=== PATIENT | male | born 1955 | race Caucasian/White ===

== ENCOUNTER 2017-03-04 06:13 | Inpatient (IN) | payer OTHER ==
[2017-02-02 09:19] VITALS: BMI 35.0
--- NOTE | 2017-02-02 09:47 | PAT Medication Instructions ---
Service Date Feb 02, 2017. Current Home Medication List Amlodipine/Benazepril (Lotrel 10MG/20MG), 1 CAP PO QAM Ascorbic Acid (Vitamin C), 1 TAB PO QAM Atenolol (Tenormin), 50 MG PO QAM Glipizide (Glucotrol), 5 MG PO QAM Hydrochlorothiazide (Hctz), 50 MG PO QAM Metformin Hcl (Glucophage), 500 MG PO BID Multivitamin (Multivitamin), 1 TAB PO QAM Naproxen (Aleve), 220 MG PO BID PRN for Pain Ocuvite Preservision (Ocuvite Preservision), 1 TAB PO BID Simvastatin (Simvastatin), 20 MG PO HS Medication Instructions For Your Scheduled Surgery - Hold the following medications 10 days prior to surgery per surgeon's instructions: Naproxen (Aleve), 220 MG PO BID PRN for Pain - Hold the following medications 48 hours prior to surgery: Metformin Hcl (Glucophage), 500 MG PO BID - Hold the following medications the morning of surgery: Amlodipine/Benazepril (Lotrel 10MG/20MG), 1 CAP PO QAM Ascorbic Acid (Vitamin C), 1 TAB PO QAM Glipizide (Glucotrol), 5 MG PO QAM Hydrochlorothiazide (Hctz), 50 MG PO QAM Multivitamin (Multivitamin), 1 TAB PO QAM Ocuvite Preservision (Ocuvite Preservision), 1 TAB PO BID - Take the following medications the morning of surgery with a sip of water OTHERWISE NOTHING TO EAT OR DRINK AFTER MIDNIGHT: Atenolol (Tenormin), 50 MG PO QAM - Take the following medications as scheduled the night before surgery: Simvastatin (Simvastatin), 20 MG PO HS Ocuvite Preservision (Ocuvite Preservision), 1 TAB PO BID If you have any questions please call us at [phone] or [phone] or [phone]
--- NOTE | 2017-02-02 10:55 | DIAGNOSTIC IMAGING REPORT ---
TWO VIEW CHEST CLINICAL HISTORY: Preoperative assessment. FINDINGS: PA and lateral chest radiographs are obtained. No prior studies are available for comparison at the time of dictation. The heart is top normal for projection. The mediastinal contour is within normal limits. Surgical clips project over the mediastinum. The lungs and pleural spaces are clear. There is no pneumothorax. The bony thorax appears intact. IMPRESSION: No active disease in the chest. Electronically signed by: Jaskaran Hill M.D. 02/02/2017 10:53 AM Dictated Date/Time: 02/02/2017 10:52 AM
[2017-02-02 11:03] LABS: BASO % 0.7 %; BASO ABS # 0.05 K/uL (0-0.2); COMPLETE YES; IG% 0.3 %; LYMPH % 28.3 %; LYMPH ABS # 1.92 K/uL (1.2-3.4); MEAN CELL VOLUME 82.6 fL (80-100); MEAN CORPUSCULAR HEMOGLOBIN 28.5 pg (25-34); MEAN CORPUSCULAR HGB CONC 34.5 g/dl (32-36); MEAN PLATELET VOLUME 10.1 fL (7.4-10.4); MONO % 6.8 %; NEUT % 59.9 %; PLATELET COUNT 264 K/uL (130-400); RED BLOOD COUNT 4.84 M/uL (4.7-6.1); WHITE BLOOD COUNT 6.78 K/uL (4.8-10.8)
[2017-02-02 11:14] LABS: BUN/CREATININE RATIO 13.6 (10-20); CALCIUM 9.4 mg/dl (8.5-10.1); CREATININE 0.85 mg/dl (0.60-1.40); POTASSIUM 3.5 mmol/L (3.5-5.1)
[2017-02-02 11:21] LABS: C-REACTIVE PROTEIN 0.51 mg/dl (0-0.29)
[2017-02-02 11:22] LABS: INR 0.9 (0.9-1.1); PROTHROMBIN TIME (PATIENT) 9.9 SECONDS (9.0-12.0)
--- NOTE | 2017-02-25 19:03 | HISTORY & PHYSICAL EXAMINATION ---
DATE OF ADMISSION: 03/04/2017 CHIEF COMPLAINT: Bilateral knee pain, right side greater than left. HISTORY OF PRESENT ILLNESS: 61-year-old gentleman and patient of my partner, Dr. Walker, who presents for surgical treatment of his right knee. He has got a long history of bilateral knee pain and discomfort, right side greater than left. He has been through extensive conservative treatment including oral medicines and injections. The last shot really did not help much at all. The right knee is worse than the left. The pain is mostly in the medial side of his knee. It is increased with weightbearing. He would like to proceed with surgery. PAST MEDICAL HISTORY: 1. Hypertension. 2. Elevated cholesterol. 3. Diabetes x6 years. 4. Benign prostatic hypertrophy. PAST SURGICAL HISTORY: 1. Chest surgery for tumor. 2. Left knee arthroscopy done by Dr. Walker 2009. 3. Shoulder surgery in 2006. ALLERGIES: VISOLINE. CURRENT MEDICINES: 1. Lotrel 10/20 once a day. 2. Glipizide 5 mg. 3. Atenolol 50 mg a day. 4. Hydrochlorothiazide 50 mg. 5. Simvastatin 20 mg a day. 6. Metformin 500 mg twice a day. 7. Aleve 3 tablets a day. 8. Multivitamins. SOCIAL HISTORY: 61-year-old male. He is retired. Lives in [place]. He is . FAMILY HISTORY: Noncontributory. REVIEW OF SYSTEMS: Diabetes. Denies any chest pain, no shortness of breath. No history of DVT or PE. No bleeding problems. PHYSICAL EXAMINATION: GENERAL: Reveals a pleasant, middle-aged male. He looks to be in good health. HEENT: Benign. NECK: Supple. No lymphadenopathy. LUNGS: Clear to auscultation. HEART: Has a regular rate and rhythm. ABDOMEN: Soft, nontender, nondistended. EXTREMITIES: Grossly neurovascularly intact except as follows. Examination of both lower extremities reveals the patient ambulates with a waddling gait. He has a varus alignment to both knees. He is tender over the medial joint line of both knees. Range of motion symmetrically about 5 degrees short of full extension to 120 degrees of flexion. He has small knee effusions bilaterally. No pain with hip motion. X-RAYS: X-rays of both knees reveal advanced bilateral knee medial compartment DJD. He has complete loss of the medial joint space on both sides. The right side is a bit worse than the left. He has subchondral sclerosis and osteophytes primarily in the medial compartment. ASSESSMENT: 61-year-old male from [place] with bilateral knee pain and degenerative joint disease, right side more so than the left. He has failed conservative treatment and would like to have his right knee replaced. He was wanting both of them done at the same time, but I think with his diabetes I think it is best to do one at a time. PLAN: We are going to take him to the operating room and do a right total knee replacement. The risks and benefits of this procedure were explained to the patient including but not limited to DVT, PE, , infection, neurologic injury, vascular injury, bleeding problem, pain, limited range of motion, stiffness, failure to relieve his symptoms, incomplete relief of symptoms, need for further surgery in the future, fracture, leg length inequality, nerve palsy, etc. The patient understands and desires to proceed. Informed consent was obtained. We did talk to him about holding his metformin 2 days before surgery and Aleve 2 weeks preop. He will take his atenolol. Will use insulin sliding scale coverage in the hospital. He is planning to be discharged to home with home nursing and I will see him back 2 weeks postop.
[2017-03-04] VITALS (8 sets, daily range): BP systolic 129–169; BP diastolic 73–99; PULSE 56–59; TEMP 36.4–36.8; O2SAT 94–100; Ht 167.6 cm; Wt 96.5 kg
[~2017-03-04] VITALS: Ht 167.6 cm; Wt 96.5 kg
[~2017-03-04 06:13] MED LIST: ACETAMINOPHEN 500 MG TAB PO SCH; AMLO10CA PO; ASCA500 PO; ATEN50TA8 PO; BUPIVACAINE LIPOSOME 266 MG, BUPIVACAINE/EPINEPHRINE INJ 50 ML, SODIUM CHLORIDE 0.9% PF... INFIL SCH; CEFAZOLIN 2000 MG/60 ML D5W 60 ML IV SCH; FAMOTIDINE 20 MG TAB PO SCH; GABAPENTIN 300 MG CAP PO SCH; GLC/500 PO; GLIP5TAB11 PO; HYDR50TA3 PO; LACTATED RINGER'S 1000ML IV SCH; LACTATED RINGER'S 500 ML IV SCH; METOCLOPRAMIDE HCL 10 MG TAB PO SCH; MULT-190 PO; MULT-506 PO; NAPR1TAB9 PO; SCOPOLAMINE 1.5 MG TDSY TD SCH; TRANEXAMIC ACID INJ 1,000 MG in SODIUM CHLORIDE 0.9% 100ML 100 ML IV SCH; ZCR20 PO
--- NOTE | 2017-03-04 06:47 | History & Physical Bridge Note ---
H&P Re-Evaluation Bridge Note: I have examined the patient, reviewed the History & Physical and in the interval since the performance of the History & Physical I have noted the following changes of clinical significance: No changes noted
[2017-03-04] MEDS ORDERED: FENTANYL CITRATE INJ 50 MCG/1 ML 2 ML VIAL ONE (07:21)
[2017-03-04] MEDS ORDERED: MIDAZOLAM HCL 1 MG/ML 2ML VIAL ONE ×3 (07:22→09:31)
[2017-03-04] MEDS ORDERED: BUPIVACAINE 0.25% 30 ML VIAL ONE (07:23)
[2017-03-04] MEDS ORDERED: BUPIVACAINE 0.5 % 5 MG/1 ML PF 10ML VIAL ONE (07:23)
[2017-03-04] MEDS ORDERED: PHENYLEPHRINE 100MCG/ML 5ML SYR IV PRN (08:30)
[2017-03-04] MEDS ORDERED: EpHEDrine SULFATE INJ 50 MG/ML AMP IV PRN (08:30)
[2017-03-04] MEDS ORDERED: KETOROLAC TROMETHAMINE 30 MG/ML VIAL IV. PRN (08:30)
[2017-03-04] MEDS ORDERED: ATROPINE SULFATE 0.1 MG/ML 5ML SYR IV PRN (08:30)
[2017-03-04] MEDS ORDERED: ONDANSETRON INJ 2 MG/ML 2 ML VIAL IV PRN ×2 (08:30→12:45)
[2017-03-04] MEDS ORDERED: HYDROmorphone INJ 2 MG/ML SYR/VIAL IV PRN (08:30)
[2017-03-04] MEDS ORDERED: SODIUM CHLORIDE 0.9% PF 50 ML VIAL ONE (10:51)
[2017-03-04] MEDS ORDERED: BUPIVACAINE/EPINEPHRINE 0.25% 1:200,000 30 ML VIAL ONE (10:51)
[2017-03-04] MEDS ORDERED: BACITRACIN 50000 UNIT VIAL ONE (10:51)
[2017-03-04] MEDS ORDERED: BUPIVACAINE LIPOSOME 1/3% 266 MG/20 ML VIAL INFIL ONE (10:51)
--- NOTE | 2017-03-04 12:33 | [facility] Post Operative Brief Note ---
Immediate Operative Summary Operative Date March 04, 2017. Pre-Operative Diagnosis Right knee degenerative joint disease Post-Operative Diagnosis Right knee degenerative joint disease Procedure(s) Performed Right total knee arthroplasty Surgeon Dr. Daniel Jensen Aeronautical Engineer Surgeon(s) Shiva Eason PA-C Estimated Blood Loss 50 ML Findings Right Knee DJD Fluids (cc crystalloids) 300 cc Specimens A. Right knee bone and tissue Drains None Anesthesia Spinal Complication(s) None Disposition Recovery Room / PACU
[2017-03-04] MEDS ORDERED: DEXTROSE 50% 50 ML SYR IV PRN (12:45)
[2017-03-04] MEDS ORDERED: BISACODYL 10 MG SUPP PR PRN (12:45)
[2017-03-04] MEDS ORDERED: MAGNESIUM HYDROXIDE SUSP 30 ML UDC PO PRN (12:45)
[2017-03-04] MEDS ORDERED: SILVER SULFADIAZINE 1% CR 50 GM JAR EXT PRN (12:45)
[2017-03-04] MEDS ORDERED: METOCLOPRAMIDE HCL INJ 5 MG/ML 2 ML VIAL IV PRN (12:45)
[2017-03-04] MEDS ORDERED: GLUCOSE 40% GEL 15 GM TUBE PO PRN (12:45)
[2017-03-04] MEDS ORDERED: TAMSULOSIN HCL 0.4 MG CAP PO PRN (12:45)
[2017-03-04] MEDS ORDERED: GLUCAGON FOR INJ 1 MG VIAL SQ PRN (12:45)
[2017-03-04] MEDS ORDERED: MoRPHine SULFATE 2 MG/ML CARP IV PRN (12:45)
[2017-03-04] MEDS ORDERED: ALUMINUM/MAGNESIUM/SIMETH (MAALOX MAX) 30 ML UDC PO PRN (12:45)
[2017-03-04] MEDS ORDERED: GLUCOSE 10 TABS/TUBE PO PRN (12:45)
[2017-03-04] MEDS ORDERED: ZOLPIDEM TARTRATE 5 MG TAB PO PRN (12:45)
--- NOTE | 2017-03-04 12:56 | DIAGNOSTIC IMAGING REPORT ---
TWO VIEWS RIGHT KNEE CLINICAL HISTORY: Postoperative examination. FINDINGS: AP and crosstable lateral portable views of the right knee are obtained. A right knee arthroplasty is in near anatomic alignment. There has been undersurface remodeling of the patella. No acute fracture is seen. There are expected postoperative changes around the knee including skin clips, soft tissue edema, and subcutaneous gas. IMPRESSION: Expected postoperative changes status post right knee arthroplasty. No acute fracture is seen. Electronically signed by: Jaskaran Hill M.D. 03/04/2017 12:54 PM Dictated Date/Time: 03/04/2017 12:54 PM
--- NOTE | 2017-03-04 14:17 | Anesthesiology Progress Note ---
Anesthesia Post Op Note Date & Time March 04, 2017 at 14:17 Vital Signs Pain Intensity: 0 Vital Signs Past 12 Hours Date Time Temp Pulse Resp B/P Pulse Ox O2 Delivery O2 Flow Rate FiO2 03/04/17 14:10 36.4 56 16 166/99 97 Nasal Cannula 3.0 03/04/17 13:21 36.9 137/68 03/04/17 13:20 56 19 03/04/17 13:20 56 19 99 03/04/17 13:16 121/68 03/04/17 13:15 58 19 98 03/04/17 13:15 58 19 03/04/17 13:11 119/63 03/04/17 13:10 62 16 97 03/04/17 13:10 63 16 03/04/17 13:06 125/68 03/04/17 13:05 57 14 97 03/04/17 13:05 56 14 03/04/17 13:01 110/83 03/04/17 13:00 60 18 93 03/04/17 13:00 60 18 03/04/17 12:56 127/72 03/04/17 12:55 56 14 98 03/04/17 12:55 57 14 03/04/17 12:51 115/68 03/04/17 12:50 56 17 97 03/04/17 12:50 56 17 03/04/17 12:46 118/62 03/04/17 12:45 57 14 03/04/17 12:45 55 14 97 03/04/17 12:44 120/66 03/04/17 12:35 36.3 62 16 113/82 14 Nasal Cannula 3 03/04/17 07:03 36.7 59 20 169/93 98 Room Air Notes Mental Status: alert / awake / arousable, participated in evaluation Pt Amnestic to Procedure: Yes Nausea / Vomiting: adequately controlled Pain: adequately controlled Airway Patency, RR, SpO2: stable & adequate BP & HR: stable & adequate Hydration State: stable & adequate Anesthetic Complications: no major complications apparent
[2017-03-04] MEDS: SODIUM CHLORIDE 0.9% 1000ML 1,000 ML IV SCH ×2 (14:47→20:36)
[2017-03-04] MEDS: OXYCODONE HCL IR 5 MG TAB (IMMEDIATE RELEASE) PO PRN ×2 (14:51→16:06)
[2017-03-04] MEDS: CHECK SCOPOLAMINE PATCH PLACEMENT SCH ×2 (15:27→23:32)
--- NOTE | 2017-03-04 15:45 | OPERATIVE REPORT ---
DATE OF OPERATION: 03/04/2017 SURGEON: Dr. Daniel Jensen. CORPORATE STRATEGIST: DIDIER Ramirez PREOPERATIVE DIAGNOSIS: Right knee degenerative joint disease. POSTOPERATIVE DIAGNOSIS: Same. PROCEDURE PERFORMED: Right cemented posterior stabilized total knee arthroplasty. COMPLICATIONS: None. ESTIMATED BLOOD LOSS: 50 mL. FLUID REPLACEMENT: 300 mL crystalloid fluid replacement. ANESTHESIA: Spinal with adductor canal block. DRAINS: None. SPECIMENS: Right knee sent for pathology. TOURNIQUET TIME: 52 minutes at 300 mmHg. OPERATIVE INDICATIONS: The patient is a 61-year-old diabetic patient who has had a long history of bilateral knee pain and discomfort, right side greater than left. He has been through extensive conservative care including oral medicines as well as injections. This became less successful over time. X-rays revealed advanced DJD and the patient elected to proceed with operative treatment. OPERATIVE FINDINGS: Operative findings revealed advanced right knee DJD. He had grade 4 [id number] disease particularly in the medial compartment pretty extensively of the medial femoral condyle and medial tibial plateau. He had some moderate degenerative changes of the patella and the lateral compartments were pretty well preserved. Moderate size joint effusion. He had a fixed varus deformity to his knee. OPERATIVE IMPLANTS: Operative implants consisted of: 1. Biomet Vanguard size 67.5 right posterior stabilized femoral component. 2. Biomet size 75 tibial tray. 3. A 10 mm posterior stabilized polyethylene insert. 4. A 34 x 8.5 All-Poly patella. OPERATIVE PROCEDURE: The patient taken to the operating room, identified and placed on the operating table in supine position. All contact areas were appropriately padded. IV antibiotics were provided by anesthesia team. A spinal anesthetic and adductor canal block had been provided in the holding area. Burnett catheter was placed in sterile fashion. Right thigh tourniquet was then placed and the right lower extremity was then prepped and draped in the usual sterile fashion. The right leg was elevated and exsanguinated with Esmarch and tourniquet was placed at 300 mmHg. An anterior approach to the right knee was then performed through a longitudinal incision centered over the patella. Sharp dissection was carried out through the subcutaneous tissue down to the level of the extensor mechanism. A medial parapatellar arthrotomy incision was made. Some subperiosteal dissection was carried out medially. The fat pad was resected from beneath the patellar tendon. The lateral patellofemoral groove ligament was released. The patella was everted and knee was flexed. The osteophytes were taken off the distal femur. The ACL and PCL were then released from the distal femur and the tibia subluxated anteriorly. The external tibial alignment jig was then placed in the anterior face of the tibia and adjusted 16 mm medially. Proximal tibial cut was made to remove about 2 mm of bone from the most deficient aspect of the medial tibial plateau. The tibia was sized to a size 75. Some osteophytes were taken off medial and posteromedially. Attention was then drawn to the femur. The distal femur was entered with a sharp drill bit. Intramedullary canal was suctioned. A right 6 degree valgus cutting guide was placed. Distal femoral cutting block was pinned in place. Distal femoral cut was made to take an additional 3 mm of bone off the distal femur. The femur was then sized to a size 67.5. We did downsize this slightly. The AP cutting block was pinned parallel to the epicondylar axis, which was 3 degrees of external rotation. The anterior cut, anterior chamfer, posterior cut, posterior chamfer cuts were made. Box cutting guide was placed and adjusted slightly lateral and the box cut was made. The knee was flexed. The remnants of the medial and lateral meniscus were excised. The osteophytes were taken off the posterior aspect of the femur. A trial femoral component was placed. The tibial tray was pinned in maximum external rotation and drill and stem punch were used to create the defect in the proximal tibia for the tibial tray. The knee was then trialed and the 10 mm insert fit most appropriately. Attention was then drawn to the patella. The patella was cleaned of all soft tissues. Patellar thickness measured 23 mm in thickness and was cut down to 14. It was sized to a size 34 patella. Lug holes were drilled for a 34 patella. The lateral osteophyte was removed. Patella button was placed. Knee was taken through range of motion and the patella tracked nicely with no thumbs test. Attention was then drawn toward placement of permanent components. All trial components were removed. Bone plug was placed in the distal femur to limit blood loss. A double batch of Palacos G cement was mixed. A right size 67.5 posterior stabilized femoral component, size 75 tibial tray, a 10 mm posterior stabilized polyethylene insert, and a 34 x 8.5 All-Poly patella were then cemented in place. Knee was brought out into full extension until cement hardened. A final cement check was then performed. Pericapsular tissues were injected with a total of 100 mL of a combination of 20 mL of Exparel, 30 mL of normal saline, 50 mL of 0.25% Marcaine with epinephrine. The patient did receive 1 gram of tranexamic acid. The tourniquet was let down for final tourniquet time of 52 minutes. Hemostasis was assured with use of electrocautery. The wound was once again irrigated. The extensor mechanism was then closed with a combination of #1 PDS suture and #1 Vicryl suture in a [id number] fashion. Extensor mechanism was checked and found to be intact. The subcutaneous tissues were then closed with 2-0 Dexon suture in a buried interrupted fashion. Skin was closed skin kenneth. Leg was then cleaned and dried and a sterile dressing of Xeroform, 4 x 4, sterile cast padding and an Nabeel bandage were applied. The patient then transferred to the recovery room in stable condition. The patient tolerated the procedure well with no complications. All needle and sponge counts were correct at the end of the operation. I attest to the content of the Intraoperative Record and any orders documented therein. Any exceptio ns are noted below.
[2017-03-04] MEDS: ACETAMINOPHEN 500 MG TAB PO SCH ×2 (16:06→23:31)
--- NOTE | 2017-03-04 17:46 | PROGRESS NOTE ---
DATE: 03/04/2017 SUBJECTIVE: A 61-year-old gentleman postop from a right knee replacement. He is doing well. No particular pain yet. Denies any chest pain or shortness of breath. Not feeling dizzy or lightheaded. OBJECTIVE: VITAL SIGNS: Temperature 36.5. Vital signs stable. PHYSICAL EXAMINATION: GENERAL: Reveals a pleasant, middle-aged male. He is sitting up in bed and talking to his family. He looks comfortable. LUNGS: Clear to auscultation. HEART: Has regular rate and rhythm. ABDOMEN: Soft, nontender, nondistended. EXTREMITIES: Grossly neurovascularly intact except as follows: Examination of the right lower extremity reveals the leg to be well aligned. Dressing is clean, dry, and intact. He is neurologically intact. X-RAYS: X-rays of the right knee from recovery room were reviewed. It shows a cemented stabilized total knee arthroplasty. Components looked to be in good position. No signs of problems. ASSESSMENT: A 61-year-old gentleman, diabetic, postop from a right knee replacement, doing well. Pain is controlled. He is neurologically intact. He has been mildly hypertensive. PLAN: 1. DVT prophylaxis including thigh-high TEDs, SCDs, and aspirin twice a day. 2. PT/OT. Weightbearing as tolerated. Right total knee protocol. 3. Pain control, doing pretty well with current pain regimen. 4. IV antibiotics x24 hours. 5. Hypertension. We will look at his meds and make sure he is back on all his home meds. 6. Disposition: He is hoping to be discharged home with some home health once adequately recovered.
[2017-03-04] MEDS: INSULIN HUMAN REGULAR SC SCH ×2 (18:06→20:33)
[2017-03-04] MEDS: FERROUS GLUCONATE 324 MG TAB PO SCH (18:07)
[2017-03-04] MEDS ORDERED: TRANEXAMIC ACID INJ 1,000 MG in SODIUM CHLORIDE 0.9% 100ML 100 ML IV SCH (19:00)
[2017-03-04] MEDS: DOCUSATE SODIUM 100 MG CAP PO SCH (20:34)
[2017-03-04] MEDS: CEFAZOLIN IV 2,000 MG in DEXTROSE 5% 50ML 50 ML IV SCH (20:34)
[2017-03-04] MEDS: KETOROLAC TROMETHAMINE 30 MG/ML VIAL IV. SCH (20:34)
[2017-03-04] MEDS: TAPENTADOL ER 50 MG TABCR PO SCH (20:34)
[2017-03-04] MEDS: ASPIRIN 325 MG ECTAB PO SCH (20:35)
[2017-03-04] MEDS: CEROVITE ADV FORMULA TAB PO SCH (20:35)
[2017-03-05] MEDS: KETOROLAC TROMETHAMINE 30 MG/ML VIAL IV. SCH ×4 (01:50→19:46)
[2017-03-05] MEDS: SODIUM CHLORIDE 0.9% 1000ML 1,000 ML IV SCH ×2 (03:43→11:03)
[2017-03-05] MEDS: CEFAZOLIN IV 2,000 MG in DEXTROSE 5% 50ML 50 ML IV SCH (03:46)
[2017-03-05 04:07] VITALS: BP 129/77; PULSE 60; TEMP 36.5; O2SAT 94
[2017-03-05 06:47] LABS: HEMATOCRIT 34.2 % (42-52); MEAN CELL VOLUME 82.4 fL (80-100); MEAN CORPUSCULAR HEMOGLOBIN 28.4 pg (25-34); MEAN CORPUSCULAR HGB CONC 34.5 g/dl (32-36); MEAN PLATELET VOLUME 10.3 fL (7.4-10.4); PLATELET COUNT 179 K/uL (130-400); RED BLOOD COUNT 4.15 M/uL (4.7-6.1); WHITE BLOOD COUNT 7.46 K/uL (4.8-10.8)
[2017-03-05 07:11] LABS: BUN/CREATININE RATIO 12.6 (10-20); CREATININE 0.79 mg/dl (0.60-1.40); POTASSIUM 2.9 mmol/L (3.5-5.1)
[2017-03-05 07:27] VITALS: BP 152/80; PULSE 67; TEMP 36.9; O2SAT 96
[2017-03-05] MEDS: CHECK SCOPOLAMINE PATCH PLACEMENT SCH ×3 (08:00→23:53)
[2017-03-05] MEDS ORDERED: POTASSIUM CHLORIDE 20 MEQ TABCR PO ONE ×2 (08:15→18:00)
[2017-03-05] MEDS ORDERED: MULTIVITAMIN TAB PO SCH (09:00)
[2017-03-05] MEDS: ACETAMINOPHEN 500 MG TAB PO SCH ×3 (09:04→23:57)
[2017-03-05] MEDS: INSULIN HUMAN REGULAR SC SCH ×4 (09:07→20:43)
[2017-03-05] MEDS: FERROUS GLUCONATE 324 MG TAB PO SCH ×3 (09:09→17:36)
[2017-03-05] MEDS: ASPIRIN 325 MG ECTAB PO SCH ×2 (09:10→20:47)
[2017-03-05] MEDS: DOCUSATE SODIUM 100 MG CAP PO SCH ×2 (09:10→20:47)
[2017-03-05] MEDS: CEROVITE ADV FORMULA TAB PO SCH ×2 (09:11→20:47)
[2017-03-05] MEDS: HYDROCHLOROTHIAZIDE 50 MG TAB PO SCH (09:11)
[2017-03-05] MEDS: MULTIVITAMIN TAB PO SCH (09:11)
[2017-03-05] MEDS: PANTOprazole SOD 40 MG TAB PO SCH (09:12)
[2017-03-05] MEDS: ASCORBIC ACID 500 MG TAB PO SCH (09:12)
[2017-03-05] MEDS: TAPENTADOL ER 50 MG TABCR PO SCH ×2 (09:12→20:47)
[2017-03-05 11:38] VITALS: BP 169/86; PULSE 69; TEMP 36.7; O2SAT 98
--- NOTE | 2017-03-05 11:54 | PROGRESS NOTE ---
DATE: 03/05/2017 SUBJECTIVE: A 61-year-old gentleman postop day 1 from right total knee replacement. He is doing pretty well. Rates his pain at about 4. Denies any chest pain or shortness of breath. OBJECTIVE: VITAL SIGNS: Temperature is 36.9. Vital signs stable. Slightly hypertensive. GENERAL: Reveals a pleasant middle-aged male. He was getting out of bed when I visited him this morning. EXTREMITIES: Examination to the right leg reveals the dressing to be clean, dry and intact. He can dorsiflex and plantarflex his foot appropriately. He is neurologically intact. LABORATORY DATA: Hemoglobin 11.8, hematocrit 34.2. Electrolytes are stable. Potassium is low at 2.9. ASSESSMENT: A 61-year-old diabetic patient, postop day 1 from right total knee replacement, doing pretty well. Pain is reasonably well controlled. Potassium is low and we will supplement that. PLAN: 1. DVT prophylaxis with thigh high TEDs and SCDs and aspirin twice a day. 2. PT/OT. Weightbearing as tolerated. Right total knee protocol. 3. Pain control, doing pretty well with current pain regimen. 4. Disposition: Plan to discharge to home with some home health once adequately recovered.
[2017-03-05 15:39] VITALS: BP 149/79; PULSE 65; TEMP 36.7; O2SAT 98
[2017-03-05] MEDS ORDERED: RXC5 PO (20:56)
[2017-03-05] MEDS ORDERED: ACET-1138 PO (20:56)
[2017-03-05] MEDS ORDERED: MORP15TA19 PO (20:56)
[2017-03-05] MEDS ORDERED: ASPEC325 PO (20:56)
[2017-03-05] MEDS ORDERED: SIMVASTATIN 20 MG TAB PO SCH (21:00)
--- NOTE | 2017-03-05 21:01 | Discharge Instructions ---
Discharge Instructions Date of Service March 05, 2017. Admission Reason for Admission: Right Knee Degenerative Joint Disease Discharge Discharge Diagnosis / Problem: Right Knee Replacement Discharge Goals Goal(s): Decrease discomfort, Improve function, Increase independence, Improve disease control, Therapeutic intervention Activity Recommendations Activity Limitations: per Instructions/Follow-up section Weightbearing Status: Right weightbearing . Instructions / Follow-Up Instructions / Follow-Up ACTIVITY RECOMMENDATIONS: Physical Therapy: * You will go to physical therapy three times each week for four to six weeks after your surgery in order to regain your knee range of motion and to retrain your knee to work properly. * It is just as important to make sure you are getting your knee perfectly straight as it is to regain your knee bend. * Taking a pain pill an hour before therapy can help you have a more productive and comfortable therapy session. Home Exercise: * You were shown a series of exercises (heel props, heel slides, etc.) in the hospital. Do these exercises three to four times each day including the exercises you were shown in physical therapy. Walking: * Get up and walk several times each day. For the first four weeks, try not to stand or walk for more than one hour at a time. If you do stand or walk for more than one hour, you will not hurt anything, but your knee and leg will likely swell. * As you feel comfortable, you may change from the walker or crutches to a cane and then to independent walking. MEDICATIONS: New Medicine: * You will likely be taking one or more of these medications: 1. MS Contin - A long-acting pain medication. Take 1 tablet twice a day for the first ten days to decrease your baseline level of pain. 2. Oxycodone - A quick and shorter-acting pain medication. Take one to two tablets every four to six hours to lessen your pain. 3. Aspirin - Thins your blood to lessen the chance of forming a blood clot. * The most common side effects of pain medicine and iron are nausea and constipation. If nausea or constipation is too much of a problem or if you have any questions about your new medicines or doses, call [facility] at . We will try to help you manage these issues. VERY IMPORTANT TO READ AND REVIEW" Pain: * The immediate post-operative period after knee replacement surgery is often quite painful. * You are given a prescription for pain medicine. You should take it, as directed, when you need it, especially before physical therapy and before going to bed. Pain that interferes with sleep is very common and can last several months. * You will likely need pain medicine for the first four to six weeks. It will not stop all of the pain. The pain will lessen and as you feel better, you may change to milder pain medicine such as Tylenol. * The most common side effects of pain medicine are nausea and constipation, so don't take more than you need. SPECIAL CARE INSTRUCTIONS: TEDs/Elastic Stockings: * The white elastic stockings help limit swelling and prevent blood clots from forming in your legs. The more you wear them, the more they work. * Wear them for six weeks after knee replacement surgery and four weeks after partial knee replacement. Prevention of Infection: * Take antibiotics one hour before any dental cleaning, dental work, urological procedure, gastrointestinal procedure or any invasive surgery in order to prevent your new joint from getting infected. * You may get the antibiotics from the doctor performing the procedure or you may call our office at before and we will call in a prescription to the pharmacy of your choice. Things to Watch For: * Drainage from the incision site that occurs more than one week after your surgery. * Severely increased knee/leg pain or swelling. * Increased redness at the incision site. * Fever above 102 degrees Fahrenheit. * Unusual chest pain or shortness of breath. * Unusual pain or burning with urination. Call [facility] at with any of the above problems or if you have any questions about your medicines or recovery. FOLLOW UP VISIT: Make an appointment to see your doctor for approximately two weeks after surgery for a progress check and staple removal by calling the office at . Current Hospital Diet Patient's current hospital diet: Diabetes Type 2 Diet Discharge Diet Recommended Diet: Diabetes Type 2 Diet Procedures Procedures Performed: Right total knee arthroplasty Pending Studies Studies pending at discharge: no Medical Emergencies . Who to Call and When: Medical Emergencies: If at any time you feel your situation is an emergency, please call [phone] immediately. . Non-Emergent Contact Non-Emergency issues call your: Surgeon . "Provider Documentation" section prepared by Daniel Jensen. . VTE Core Measure Inpt VTE Proph given/why not?: Other Anticoagulation, T.E.D. Stockings, SCD's
[2017-03-05 22:49] VITALS: BP 129/74; PULSE 69; TEMP 37; O2SAT 96
[2017-03-05] MEDS: OXYCODONE HCL IR 5 MG TAB (IMMEDIATE RELEASE) PO PRN (23:58)
[2017-03-06] MEDS: KETOROLAC TROMETHAMINE 30 MG/ML VIAL IV. SCH ×2 (02:56→08:15)
[2017-03-06] MEDS: OXYCODONE HCL IR 5 MG TAB (IMMEDIATE RELEASE) PO PRN (05:53)
[2017-03-06 07:04] VITALS: BP 149/79; PULSE 77; TEMP 36.5; O2SAT 96
[2017-03-06] MEDS: INSULIN HUMAN REGULAR SC SCH (08:00)
[2017-03-06] MEDS: FERROUS GLUCONATE 324 MG TAB PO SCH (08:08)
[2017-03-06] MEDS: ACETAMINOPHEN 500 MG TAB PO SCH (08:08)
[2017-03-06] MEDS: PANTOprazole SOD 40 MG TAB PO SCH (08:10)
[2017-03-06] MEDS: TAPENTADOL ER 50 MG TABCR PO SCH (08:10)
[2017-03-06] MEDS: MULTIVITAMIN TAB PO SCH (08:10)
[2017-03-06] MEDS: HYDROCHLOROTHIAZIDE 50 MG TAB PO SCH (08:10)
[2017-03-06] MEDS: ASCORBIC ACID 500 MG TAB PO SCH (08:12)
[2017-03-06] MEDS: ASPIRIN 325 MG ECTAB PO SCH (09:09)
[2017-03-06] MEDS: CEROVITE ADV FORMULA TAB PO SCH (09:09)
--- NOTE | 2017-03-06 09:14 | PROGRESS NOTE ---
DATE: 03/06/2017 SUBJECTIVE: A 61-year-old gentleman postop day #2 from a right knee replacement. He is doing pretty well. Pain is controlled. Denies any chest pain or shortness of breath. Not feeling dizzy or lightheaded. OBJECTIVE: VITAL SIGNS: Temperature 36.5. Vital signs stable. PHYSICAL EXAMINATION: GENERAL: Reveals healthy, pleasant, middle-aged male. He is sitting up in his bedside chair and looks comfortable. LUNGS: Clear to auscultation. HEART: Regular rate and rhythm. ABDOMEN: Soft, nontender, nondistended. EXTREMITIES: Grossly neurovascularly intact except as follows. Examination of the right lower extremity reveals the dressing to be clean, dry, and intact. He can dorsiflex and plantarflex his foot appropriately. He is neurologically intact. ASSESSMENT: A 61-year-old gentleman postop day #2 from right knee replacement, doing pretty well. Pain is controlled. PLAN: 1. DVT prophylaxis including thigh-high TEDs, SCDs, and aspirin twice a day. 2. PT/OT. Weightbearing as tolerated. Right total knee protocol. 3. Pain control, doing well with current pain regimen. 4. Disposition: Plan to discharge to the home with some home health. GLORIA
[2017-03-06] MEDS: DOCUSATE SODIUM 100 MG CAP PO SCH (09:20)
[2017-03-06 10:38] VITALS: BP 149/79; PULSE 77; O2SAT 96
[2017-03-06 10:44] VITALS: BP 149/79; PULSE 77; TEMP 36.5; O2SAT 96
--- NOTE | 2017-03-10 15:27 | DISCHARGE SUMMARY ---
ADMITTING PHYSICIAN AND SURGEON: Dr. Jensen. ADMITTING DIAGNOSIS: Right knee degenerative joint disease. SURGERY PERFORMED: Right total knee arthroplasty. SECONDARY DIAGNOSES: Hypertension, elevated cholesterol, diabetes, BPH. CONSULTS: None obtained. HISTORY AND PHYSICAL EXAMINATION: Well documented in the patient's chart. HOSPITAL COURSE: The patient was admitted on 03/04/2017 underwent total knee arthroplasty. He tolerated the procedure well. There were no complications. He was transferred to the PACU postoperatively and later to the orthopedic floor for further care. He was given Ancef for antibiotic prophylaxis, JON stockings, SCDs and aspirin for DVT prophylaxis. Hemoglobin, hematocrit and vital signs were monitored during his hospital stay and remained stable, did not require any blood transfusions. There were no complications. By postoperative day 2, he was tolerating a diabetic diet. Pain was controlled with oral pain medicine. He was participating in physical therapy and had no signs or symptoms of deep vein thrombosis. On postop day 2, he was discharged home and set up with home health services, given printed discharge instructions including prescriptions for extra strength Tylenol, aspirin 325 mg b.i.d., MS Contin and oxycodone. Continue his home medicines. Continue physical therapy, weightbearing as tolerated, JON stockings. Follow up in 10-12 days or sooner if any problems or concerns.
== END 2017-03-06 11:50 | disposition home health service (06) | DRG 470 ==
LOC: ENRESERVTM → ENRESERVDT → C.ACU 06:13 → C.3E 06:40
PROVIDERS: ADMIT Orthopaedic Surgery Sports Medicine; ATTEND Orthopaedic Surgery Sports Medicine
PROC: 0SRC0J9 Replacement of Right Knee Joint with Synthetic Substitute, Cemented, Open Approach (ICD-10-PCS; principal; 2017-03-04 09:00)
DX: M17.0 Bilateral primary osteoarthritis of knee (principal); M25.461 Effusion, right knee; M21.161 Varus deformity, not elsewhere classified, right knee; E87.6 Hypokalemia; I10 Essential (primary) hypertension; E11.9 Type 2 diabetes mellitus without complications; E78.00 Pure hypercholesterolemia, unspecified; N40.0 Benign prostatic hyperplasia without lower urinary tract symptoms; E66.9 Obesity, unspecified; Z68.35 Body mass index [BMI] 35.0-35.9, adult; Z87.891 Personal history of nicotine dependence; Z79.84 Long term (current) use of oral hypoglycemic drugs; Z79.899 Other long term (current) drug therapy

== ENCOUNTER 2022-07-08 09:49 | Observation (INO) ==
--- NOTE | 2022-05-25 10:19 | PAT Medication Instructions ---
Medication Instructions Date of Service May 25, 2022 Home Medications acetaminophen 500 mg tablet 500 mg PO Q8H PRN Pain amlodipine 10 mg tablet 10 mg PO QPM ascorbic acid (vitamin C) 500 mg tablet (Vitamin C) 1,000 mg PO QAM aspirin 81 mg tablet 81 mg PO QAM benazepril 40 mg tablet 40 mg PO QAM finasteride 5 mg tablet 5 mg PO QPM glipizide 5 mg tablet 5 mg PO QAM metformin 500 mg tablet 500 mg PO BID metoprolol succinate 100 mg tablet,extended release 24 hr 100 mg PO QAM multivitamin 1 tab PO QAM potassium chloride 10 mEq tablet,extended release 10 meq PO BID simvastatin 20 mg tablet 20 mg PO HS terazosin 5 mg capsule 5 mg PO HS vitamins A,C,R-ijjr-jpcuua 2,148 mcg-113 mg-45 mg-17.4 mg tablet 1 tab PO BID STOP taking 2 weeks before surgery (or as soon as possible if surgery is within 2 weeks) vitamins A,C,X-zuxp-hvjvvo 2,148 mcg-113 mg-45 mg-17.4 mg tablet 1 tab PO BID DO NOT take the morning of surgery ascorbic acid (vitamin C) 500 mg tablet (Vitamin C) 1,000 mg PO QAM benazepril 40 mg tablet 40 mg PO QAM glipizide 5 mg tablet 5 mg PO QAM metformin 500 mg tablet 500 mg PO BID multivitamin 1 tab PO QAM potassium chloride 10 mEq tablet,extended release 10 meq PO BID Take morning of surgery With a small sip of water, OTHERWISE NOTHING TO EAT OR DRINK AFTER MIDNIGHT: acetaminophen 500 mg tablet 500 mg PO Q8H PRN Pain (if needed) aspirin 81 mg tablet 81 mg PO QAM (continue as normal unless told otherwise by surgeon) metoprolol succinate 100 mg tablet,extended release 24 hr 100 mg PO QAM Take evening before surgery acetaminophen 500 mg tablet 500 mg PO Q8H PRN Pain (if needed) amlodipine 10 mg tablet 10 mg PO QPM finasteride 5 mg tablet 5 mg PO QPM metformin 500 mg tablet 500 mg PO BID potassium chloride 10 mEq tablet,extended release 10 meq PO BID simvastatin 20 mg tablet 20 mg PO HS terazosin 5 mg capsule 5 mg PO HS Other Notes If you have any questions please call us at [phone] or [phone] or [phone] or [phone]
--- NOTE | 2022-05-31 10:01 | Anesthesiology Consultation ---
Date of Service May 31, 2022 Assessment & Plan (1) Encounter for pre-operative examination: - COVID screening: Per assessment on 05/31: No known COVID-19 positive contacts or current COVID-19 related symptoms. Travel screen negative. Patient attends synagogue on Sundays (100-150 people) - masks optional. At surgeon discretion if preop Covid testing being obtained. - Check BSG AM DOS - S/P Right TKA (03/04/17): SAB at L3/4 (x1 attempt) + PNB at [facility]. No issues noted per post-op anesthesia progress note. Chart Review Chart Review: Acceptable Risk for Surgery and Patient seen in Pre Admission Testing Teaching & Discussion Pre-Anesthesia Teaching/Discussion Notes: Instructed NPO after midnight before surgery,except medications with 15 cc of water. Medication instructions provided according to the PAT guidelines. p History Surgery Operation Date: 07/08/22 07:00 Proposed Procedures p Left Total Knee Arthroplasty - Daniel Jensen MD Height/Weight Height: 5 ft 5.5 in Weight: 98.1 kg Allergies Allergy/AdvReac Type Severity Reaction Status Date / Time verteporfin AdvReac Unknown Severe Verified 05/31/22 10:30 back pain Medications Home Medications Medication Instructions Recorded Confirmed Last Taken acetaminophen 500 mg tablet 500 mg PO Q8H PRN Pain 05/20/22 05/20/22 Unknown amlodipine 10 mg tablet 10 mg PO QPM 05/20/22 05/20/22 Unknown ascorbic acid (vitamin C) 500 mg 1,000 mg PO QAM 05/20/22 05/20/22 Unknown tablet (Vitamin C) aspirin 81 mg tablet 81 mg PO QAM 05/20/22 05/20/22 Unknown benazepril 40 mg tablet 40 mg PO QAM 05/20/22 05/20/22 Unknown finasteride 5 mg tablet 5 mg PO QPM 05/20/22 05/20/22 Unknown glipizide 5 mg tablet 5 mg PO QAM 05/20/22 05/20/22 Unknown metformin 500 mg tablet 500 mg PO BID 05/20/22 05/20/22 Unknown metoprolol succinate 100 mg 100 mg PO QAM 05/20/22 05/20/22 Unknown tablet,extended release 24 hr multivitamin 1 tab PO QAM 05/20/22 05/20/22 Unknown potassium chloride 10 mEq 10 meq PO BID 05/20/22 05/20/22 Unknown tablet,extended release simvastatin 20 mg tablet 20 mg PO HS 05/20/22 05/20/22 Unknown terazosin 5 mg capsule 5 mg PO HS 05/20/22 05/20/22 Unknown vitamins A,C,W-smnq-srmipb 2,148 1 tab PO BID 05/20/22 05/20/22 Unknown mcg-113 mg-45 mg-17.4 mg tablet Past Medical History Medical History BPH (benign prostatic hyperplasia) Claustrophobia Diabetes mellitus, type 2 NIDDM History of macular degeneration Left eye s/p injection ("to stop the advancement of the disease") Hyperlipidemia Hypertension Obesity Osteoarthritis Exercise / Class Metabolic Activity II 4-5 Yardwork/Stairs/Walk up hill Past Surgical History Surgical History History of thoracic surgery 1967 ([facility]) "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 No issues noted per post-op anesthesia progress note. Hx of arthroscopic knee surgery Left (torn meniscus repair) Hx of shoulder surgery Right Hx of tonsillectomy Status post right knee replacement Past Anesthesia History No Hx of Anesthesia Complications and No Family Hx of Anesthesia Complications History of PONV No Hx of PONV and No Hx of Motion Sickness Social History Smoking Status: Never smoker Do You Dip or Chew Tobacco: Yes (Quit 20+ years) Hx Alcohol Use: No Hx Substance Use: No substance use type: does not use Review of Systems Chronic sinus drainage x years- no recent changes. Patient denies chest pain, shortness of breath, dyspnea on exertion, fever, chills, cough, wheezing, palpitations. Physical Exam Vital Signs VITALS BP 132/72 P 65 TEMP 98.5 SP02 96%RA RESP 16 PHYSICAL Full cervical extension range of motion. Full TMJ range of motion. TMD 3.5 finger breaths Mallampati Score 3 Dentition: missing teeth including upper front sides Lungs: clear throughout to auscultation Cardiac: regular rate and rhythm, no murmurs noted Spine: normal Carotid arteries: negative bruit Extremities: no edema Lab Results Anesthesia Preop Results Results Anesthesia Widget: WBC 4.73 K/ul (4.8-10.8) L 05/31/22 Hgb 13.5 g/dl (14.0-18.0) L 05/31/22 Hct 39.6 % (40.1-51.0) L 05/31/22 Plt 189 K/uL (130-400) 05/31/22 Na 138 mmol/L (136-145) 05/31/22 K 3.3 mmol/L (3.5-5.1) L 05/31/22 Cl 101 mmol/L (98-107) 05/31/22 CO2 30 mmol/L (21-32) 05/31/22 BUN 20 mg/dl (6-23) 05/31/22 Creat 0.94 mg/dl (0.6-1.4) 05/31/22 Glucose Level 99 mg/dl (70-99(Fasting)) 05/31/22 PT 10.3 Seconds (9.0-12.0) 05/31/22 PTT 27.1 Seconds (21.0-31.0) 05/31/22 INR 1.0 (0.9-1.1) 05/31/22 HA1c 5.8 % (4.5-5.6) H 05/31/22 Blood Type O Positive 05/31/22 Antibody Screen NEGATIVE 05/31/22 Testing Electrocardiogram Date: 05/31/22 Findings: + NSR @ (66) Chest X-Ray Date: 05/31/22 FINDINGS: Cardiomediastinal and hilar silhouettes are within normal limits. No pneumothorax, pleural effusion, airspace consolidation or overt pulmonary edema. Degenerative changes of the shoulders and spine. Surgical clips project over the mid mediastinum. IMPRESSION: No acute process. Echocardiogram Date: 06/30/21 LVEF 60-64%. No regional motion abnormality. Borderline increased concentric LV wall thickness. No significant valvular disease.
--- NOTE | 2022-06-19 14:08 | History and Physical Report ---
DATE OF ADMISSION: 07/08/2022. CHIEF COMPLAINT: Persistent and progressive left knee pain and discomfort. HISTORY OF PRESENT ILLNESS: The patient is a 66-year-old gentleman well known to me from previous right knee replacement done about 5 years ago. His right knee has done well. Over the years, he developed increased pain and discomfort in his left knee. He describes it has gotten worse over time. He has had an injection, which helped him temporarily, but do not last long enough. Pain is mostly medial, but some global pain, the more it up and on it, the more it hurts. Limps more as the day goes on. He is ready to have this knee fixed. PAST MEDICAL HISTORY: 1. Hypertension. 2. Elevated cholesterol. 3. Diabetes with a hemoglobin A1c of 5.8. 4. Low back pain/sciatica. 5. Gastroesophageal reflux disease. 6. BPH. PAST SURGICAL HISTORY: Includes: 1. Chest Surgery 2. Shoulder surgery 3. Right knee replacement done on 03/04/2017. 4. Left knee arthroscopy. ALLERGIES: NKDA CURRENT MEDICATIONS: Include: 1. Benazepril. 2. Chlorthalidone. 3. Prazosin. 4. Simvastatin. 5. Glipizide. 6. Potassium chloride. 7. Metoprolol. 8. Amlodipine. 9. Metformin. 10. Tylenol. SOCIAL HISTORY: A 66-year-old male. He is retired. , with 3 children. Does not drink. FAMILY HISTORY: Significant for diabetes. REVIEW OF SYSTEMS: Significant for well-controlled diabetes. No chest pain or shortness of breath. No history of DVT or PE. No known bleeding problems. PHYSICAL EXAMINATION: GENERAL: Shows a pleasant middle-aged male. Looks to be in pretty good health. HEENT: Benign. NECK: Supple. No lymphadenopathy. LUNGS: Clear to auscultation. HEART: Regular rate and rhythm. ABDOMEN: Soft, nontender, nondistended. EXTREMITIES: Grossly neurovascularly intact except as follows: Examination of the left knee reveals the patient ambulates independently. He has got varus alignment to his knee. He has got bony hypertrophy medially. He has about a 10-degree flexion contracture and bend to about 110. No pain with hip motion. Examination of the right knee reveals well-healed incision. Anatomic alignment. No swelling. Range of motion is 0 to 120. X-RAYS: X-rays of the left knee reveal advanced left knee degenerative joint disease. He has got complete loss of medial joint space. He has got subchondral sclerosis. His right knee replacement looks to be in good position without signs of problems. ASSESSMENT: A 66-year-old gentleman 5 years out from right knee replacement with advanced left knee degenerative joint disease. He has got multiple other medical comorbidities including diabetes, hypertension, elevated cholesterol, gastroesophageal reflux disease and BPH, which are all under reasonable control. He would like to proceed with left knee replacement. PLAN: We will take him to the operating room and do left total knee replacement. The risks and benefits of this procedure were explained to the patient and include but not limited to DVT, PE, , infection, neurological injury, vascular injury, bleeding problem, pain, limited range of motion, stiffness, failure to relieve his symptoms, incomplete relief of symptoms, need for further surgery in the future, etc. The patient understands and desires to proceed. Informed consent was obtained. He knows to hold his metformin on the morning of surgery and take his metoprolol with a sip of water. He is planning to be discharged to home using [facility]. We will use insulin sliding scale coverage in the hospital. Job ID: [id number] [facility]
[~2022-07-08 09:49] MED LIST changes: -AMLO10CA PO; -ASCA500 PO; -ATEN50TA8 PO; +BUPIVACAINE 0.5 % 5 MG/1 ML PF 10ML VIAL ONE; -BUPIVACAINE LIPOSOME 266 MG, BUPIVACAINE/EPINEPHRINE INJ 50 ML, SODIUM CHLORIDE 0.9% PF... INFIL SCH; +BUPIVACAINE LIPOSOME/PF 266 MG, BUPIVACAINE/EPINEPHRINE 50 ML, SODIUM CHLORIDE 0.9% 30 ... INFIL SCH; -CEFAZOLIN 2000 MG/60 ML D5W 60 ML IV SCH; +CeleBREX 200 MG CAP PO SCH; -GABAPENTIN 300 MG CAP PO SCH; -GLC/500 PO; -GLIP5TAB11 PO; -HYDR50TA3 PO; -LACTATED RINGER'S 1000ML IV SCH; -LACTATED RINGER'S 500 ML IV SCH; +LR 500ML BOLUS, THEN 15ML/HR IV SCH; +LR 60ML/HR IV SCH; -METOCLOPRAMIDE HCL 10 MG TAB PO SCH; +METOCLOPRAMIDE HCL 10 MG TABLET PO SCH; -MULT-190 PO; -MULT-506 PO; -NAPR1TAB9 PO; +ROPIVACAINE 0.5% 5 MG/ML 30 ML VIAL ONE; -SCOPOLAMINE 1.5 MG TDSY TD SCH; +Scopolamine 1 MG TDSY TD SCH; +TRANEXAMIC ACID 1,000 MG **IV Intra-op IV SCH; -TRANEXAMIC ACID INJ 1,000 MG in SODIUM CHLORIDE 0.9% 100ML 100 ML IV SCH; -ZCR20 PO; +ceFAZolin 2000MG 2,000 MG/15 ML SYR IV SCH
--- NOTE | 2022-07-08 11:02 | History & Physical Bridge Note ---
Date of Service July 08, 2022 History & Physical Bridge Note I have examined the patient, reviewed the History & Physical and in the interval since the performance of the History & Physical I have noted the following changes of clinical significance: no changes noted
[2022-07-08] MEDS ORDERED: ePHEDrine sulfate 50 MG/ML AMP IV PRN (12:11)
[2022-07-08] MEDS ORDERED: fentaNYL citrate 100 MCG/2 ML VIAL IV PRN (12:11)
[2022-07-08] MEDS ORDERED: ATROPINE SULFATE 0.1 MG/ML 10ML SYR IV PRN (12:11)
[2022-07-08] MEDS ORDERED: ONDANSETRON INJ 2 MG/ML 2 ML VIAL IV PRN ×2 (12:11→16:33)
[2022-07-08] MEDS ORDERED: MIDAZOLAM HCL 1 MG/ML 2ML VIAL ONE (12:14)
[2022-07-08] MEDS ORDERED: PROPOFOL IV EMULSION 10 MG/ML 20 ML VIAL IV ONE ×2 (12:15→15:30)
[2022-07-08] MEDS ORDERED: BUPIVACAINE/EPINEPHRINE 0.25% 1:200,000 30 ML VIAL ONE (13:27)
[2022-07-08] MEDS ORDERED: BUPIVACAINE LIPOSOME 1.3% 266 MG/20 ML VIAL ONE (13:27)
[2022-07-08] MEDS ORDERED: SODIUM CHLORIDE 0.9% PF 50 ML VIAL ONE (13:27)
[2022-07-08] MEDS ORDERED: ONDANSETRON INJ 2 MG/ML 2 ML VIAL ONE (13:56)
--- NOTE | 2022-07-08 15:51 | Operative Report ---
PG Post Operative Report Pre & Post Diagnosis Operation Date: 07/08/22 12:30 Pre-Op Diagnosis: Left Knee Degenerative Joint Disease Post-Op Diagnosis: Left Knee Degenerative Joint Disease I identified the patient and participated in the time-out.: Yes Procedure Operation Date: 07/08/22 12:30 Actual Procedures p Left Total Knee Arthroplasty(Left) - Daniel Jensen MD Surgeon Daniel Jensen MD Candy Decorator Roman Eason PA-C Estimated Blood Loss 50 Findings Consistent with Post-Op Diagnosis Operative findings revealed advanced left knee DJD. He had extensive grade 4 fvwx-ku-[id number] disease the medial and patellofemoral compartments. The lateral compartment is pretty well spared. He did have a varus deformity to his knee and a flexion contracture of 10 to 15 degrees. Moderate-sized joint effusion. Fluids 1100 cc Specimens Left knee sent for pathology Drains None Anesthesia Type Spinal MAC Complications none Disposition Accompanied Patient To Recovery: No Indications Patient is a 66-year-old gentleman is had a long history of knee problems. He had his right knee replaced several years ago and is done pretty well from this. Over the past several years he developed increased pain discomfort in his left knee which would become more debilitating over time. He failed all conservative measures. He elected proceed with total knee arthroplasty. Description of Procedure Operative implants consist of: 1 Biomet Vanguard size 67.5 left posterior stabilized femoral component. 2. Biomet size 75 tibial tray. 3. 10 mm posterior stabilized polyethylene insert. 4. 31 x 8 all Paller patella. The patient was taken to the operating, identified, placed on the operating table supine position. All contact areas were properly padded. IV antibiotics tried by anesthesia team. Spinal anesthetic and abductor canal block had provided in the holding area. Burnett catheter was placed in sterile fashion. Left thigh tent was then placed in the left lower extremities and prepped and draped in usual sterile fashion. The left leg was elevated exsanguinated with use of an Esmarch and the tourniquet was set at 300 mmHg. An anterior posterior left knee was then performed through a longitudinal incision centered over the patella. Sharp dissection was carried through subcutaneous tissue down the extensor mechanism. A medial parapatellar arthrotomy incision was made. Some subperiosteal dissection was carried out medially. The fat pad was resected beneath the patella tendon. Lateral patellofemoral ligament was released. Patella subluxated laterally and the knee was flexed. The osteophyte taken off distal femur. ACL and PCL were then released from distal femur the tibia subluxated anteriorly. The external tibial alignment jig was then placed in the interface the tibia and adjusted 14 mm medially. Proximal tibial cut was made remove about a millimeter bone from most deficient aspect of the medial tibial plateau. Some osteophytes taken off medial and posterior medially. Tibia sized to a size 75. Attention down the femur. The distal femur during the sharp drop with intramedullary canal was suction. A right 6 degree valgus cutting guide was placed. Distal femoral cutting block was pinned in place. Distal femoral cut was made to take an additional 3 mm of bone off distal femur. The femur was then sized to a size 67.5. The AP cutting block was pinned parallel to the epicondylar axis which was 5 degrees of external rotation. Anterior cut, anterior chamfer, posterior cut, posterior chamfer cuts were made. The box cutting guide was placed in just slight lateral and the box cut was made. The knee was flexed. The remnants of the medial and lateral menisci were excised. The osteophytes taken off the posterior aspect the femur. A trial femoral component was placed. The tibial tray was pinned in maximum external rotation and the drill and stem punch were used to create defect in proximal tibia. Tibial tray. The knee was trialed and the 10 mm insert fit most appropriately. Attention drawn the patella. Patella cleaned of all soft tissues. Patella thickness measured 22 mm in thickness and was cut down to 14. Was sized to a size 31 patella. The lug holes were drilled for the 31 patella. Of note, he seemed to have an accessory ossification center superior laterally but it appeared well fixed it was left alone. The knee was then taken through range of motion and the patella tracked nicely with no thumbs test. Attention drawn to place the permanent components. All trial components were removed. A bone plug was placed in the distal femur limit blood loss. A double batch Palacos G cement was mixed. A Biomet Vanguard size 67.5 left posterior stabilized femoral component, size 75 tibial tray, 10 mm posterior stabilized polyethylene insert, and a 31 x 8 all Paller patella then cemented in place. Knee was brought out into full extension total cement hardened. Final cement check was then performed. Attention drawn toward closing. Wound was irrigated scope soft pulsatile lavage solution. I did inject locally with 100 cc of combination of 20 cc of Exparel, 30 cc normal saline, 50 cc of quarter percent Marcaine with epinephrine. Patient did receive 1 g tranexamic acid. The tourniquet was let down for final turn time was 64 minutes. Hemostasis reduced electrocautery. Extensor mechanism then closed with combination 1 PDS suture #1 Vicryl suture in [id number] fashion with exten sor mechanism checked found to be intact the subcutaneous tissue then closed with 2 Dexon suture in a buried erupted fashion skin was closed skin kenneth. Leg was then cleaned and dried a sterile dressing was Xeroform, 4 x 4's, sterile cast padding, Nabeel bandage were applied. Patient then transferred to the recovery room in stable condition. Patient tolerated procedure well and there were no complications. Roman Eason, my physician assistant credit manager, was present for the entire procedure. His assistance was essential and required for appropriate patient positioning, prepping and draping, surgical exposure, performing the technical details of the operation, placement the implants, closure of the wound, and placement of the sterile bandage. I attest to the content of the Intraoperative Record and any orders documented therein. Any exceptions are noted below.
--- NOTE | 2022-07-08 15:58 | Anesthesiology Progress Note ---
Date of Service July 08, 2022 Anesthesia Post Procedure Vital Signs Vital Signs: Temp Pulse Pulse Resp BP BP Pulse Ox 07/08/22 15:55 62 14 104/66 97 07/08/22 15:45 36.7 C 58 L 21 120/65 98 07/08/22 10:35 36.7 C 83 18 140/82 95 07/08/22 10:35 O2 Del Method 07/08/22 15:55 Room Air 07/08/22 15:45 Room Air 07/08/22 10:35 Room Air 07/08/22 10:35 Room Air Pain Intensity Left Knee: Pain Intensity: 0 Transfer of Care Handoff Completed per policy Notes Mental Status: alert / awake / arousable Patient Amnestic to Procedure: Yes Nausea / Vomiting: adequately controlled Pain: adequately controlled Airway Patency, RR, SpO2: stable & adequate BP & HR: stable & adequate Hydration State: stable & adequate Neuraxial Anesthesia: was administered and sensory block is resolving Anesthetic Complications: no major complications apparent
--- NOTE | 2022-07-08 16:20 | XRay Report ---
XR knee LT 1 or 2V routine CLINICAL HISTORY: Postoperative evaluation. COMPARISON: Knee radiographs 03/29/2022. FINDINGS: Alignment of the total left knee arthroplasty is anatomic. There is no periprosthetic frac ture or unexpected radiopaque foreign body. There are skin kenneth. 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 IMPRESSION: Expected findings following total left knee arthroplasty. ACT 112: Negative or not required by law. Electronically signed by: Jama Taylor M.D. 07/08/2022 4:19 PM
[2022-07-08] MEDS ORDERED: HYDROmorphone INJ 0.5 MG/0.5 ML SYR IV PRN (16:33)
[2022-07-08] MEDS ORDERED: oxyCODONE HCL IR 5 MG TAB (IMMEDIATE RELEASE) PO PRN (16:33)
[2022-07-08] MEDS ORDERED: NALOXONE HCL 0.4 MG/1 ML VIAL/CARP IV PRN (16:33)
[2022-07-08] MEDS ORDERED: ALUMINUM/MAGNESIUM SUSP 30 ML UDC PO PRN (16:33)
[2022-07-08] MEDS ORDERED: PHARMACY GLYCEMIC MGMT CONSULT PRN (16:33)
[2022-07-08] MEDS ORDERED: MAGNESIUM HYDROXIDE SUSP 30 ML UDC PO PRN (16:33)
[2022-07-08] MEDS ORDERED: METOCLOPRAMIDE HCL INJ 5 MG/ML 2 ML VIAL IV PRN (16:33)
[2022-07-08] MEDS ORDERED: bisacodyL 10 MG SUPP PR PRN (16:33)
[2022-07-08] MEDS ORDERED: CARBOHYDRATES FOR HYPOGLYCEMIA PO PRN (16:45)
[2022-07-08] MEDS ORDERED: GLUCOSE 40% GEL 15 GM TUBE PO PRN (16:45)
[2022-07-08] MEDS ORDERED: DEXTROSE 50% 50 ML SYRINGE IV PRN (16:45)
[2022-07-08] MEDS ORDERED: GLUCAGON FOR INJ 1 MG VIAL IM PRN (16:45)
[2022-07-08] MEDS ORDERED: GLUCOSE 10 TAB/TUBE PO PRN (16:45)
[2022-07-08] MEDS: SODIUM CHLORIDE 0.9% 1000ML 1,000 ML IV SCH (18:06)
[2022-07-08] MEDS: Scopolamine CHECK PATCH PLACEMENT SCH ×2 (18:07→23:19)
[2022-07-08] MEDS: INSULIN ASPART PER UNIT SC SCH ×2 (18:09→22:49)
[2022-07-08] MEDS ORDERED: DOCUSATE SODIUM/SENNA 50/8.6MG TAB PO SCH (21:00)
[2022-07-08] MEDS ORDERED: FINASTERIDE 5 MG TAB PO SCH (21:00)
[2022-07-08] MEDS ORDERED: TERAZOSIN HCL 5 MG CAP PO SCH (21:00)
[2022-07-08] MEDS ORDERED: amLODIPine BESYLATE 5 MG TAB PO SCH (21:00)
[2022-07-08] MEDS ORDERED: SENNA 8.6 MG TAB PO SCH (21:00)
[2022-07-08] MEDS ORDERED: SIMVASTATIN 20 MG TAB PO SCH (21:00)
[2022-07-08] MEDS: ASPIRIN 81 MG ECTAB PO SCH (21:32)
[2022-07-08] MEDS: POTASSIUM CHLORIDE 10 MEQ TABCR PO SCH (21:32)
[2022-07-08] MEDS: CEROVITE ADV FORMULA TAB PO SCH (21:34)
[2022-07-08] MEDS: DOCUSATE SODIUM 100 MG CAP PO SCH (21:34)
[2022-07-08] MEDS: ACETAMINOPHEN 500 MG TAB PO SCH (21:35)
[2022-07-08] MEDS: ceFAZolin 2000MG 2,000 MG/15 ML SYR IV SCH (21:39)
[2022-07-08] MEDS: TAPENTADOL HCL ER 50 MG TABCR PO SCH (21:39)
[2022-07-08] MEDS ORDERED: TRANEXAMIC ACID / 0.7% NACL 1,000 MG/100 ML BAG IV SCH (21:45)
[2022-07-08] MEDS: KETOROLAC TROMETHAMINE 15 MG/ML VIAL IV SCH (23:18)
[2022-07-09] MEDS: SODIUM CHLORIDE 0.9% 1000ML 1,000 ML IV SCH (02:35)
[2022-07-09] MEDS: ACETAMINOPHEN 500 MG TAB PO SCH (06:20)
[2022-07-09] MEDS: ceFAZolin 2000MG 2,000 MG/15 ML SYR IV SCH (06:20)
[2022-07-09] MEDS: KETOROLAC TROMETHAMINE 15 MG/ML VIAL IV SCH ×2 (06:20→11:20)
[2022-07-09 06:29] LABS: Hematocrit (blood only) 32.2 % (40.1-51.0); Hemoglobin 11.2 g/dl (14.0-18.0); Mean Corpuscular Hemoglobin 29.2 pg (25.0-34.0); Mean Corpuscular Hgb Conc 34.8 g/dL (32.0-36.0); Mean Corpuscular Volume 83.9 fL (80.0-100.0); Platelet Count 171 K/uL (130-400); RDW Standard Deviation 39.2 fL (36.4-46.3); Red Blood Count 3.84 M/uL (4.63-6.08); White Blood Count 8.85 K/ul (4.8-10.8)
[2022-07-09 06:50] LABS: Calcium 8.5 mg/dl (8.5-10.1); Creatinine Clr Calc Pharmacy 76.3 ml/min; Est GFR (African American) 86.3 ml/min; Est GFR (Non-African American) 74.5 ml/min; Potassium 3.3 mmol/L (3.5-5.1)
[2022-07-09] MEDS ORDERED: POTASSIUM CHLORIDE CRTAB 20 MEQ TABCR PO ONE (07:19)
--- NOTE | 2022-07-09 07:40 | Progress Notes ---
DATE OF SERVICE: 07/09/2022. SUBJECTIVE: A 66-year-old gentleman, postoperative day 1 from a left knee replacement. He is doing pretty well. He had a pretty good night. Pain is at most a 4/10. No chest pain or shortness of serina ath. Not feeling dizzy or lightheaded. OBJECTIVE: VITAL SIGNS: Temperature is 36.8. Vital signs are stable. GENERAL: Shows a pleasant middle-aged male. He is sitting up in bed, looks pretty comfortable this morning. LUNGS: Clear to auscultation. HEART: Regular rate and rhythm. ABDOMEN: Soft, nontender, nondistended. EXTREMITIES: Grossly neurovascularly intact except as follows: Examination of the left leg reveals the dressing to be clean, dry and intact. The leg is well aligne d. He can dorsiflex and plantarflex his foot appropriately. He is neurologically intact. LABORATORY DATA: Hemoglobin 11.2. Hematocrit 32.2. Electrolytes are stable. Potassium slightly lo w at 3.3. ASSESSMENT: A 66-year-old diabetic gentleman, postoperative day 1 from left knee replacement, doing pretty well. His pain is controlled. His knee is well aligned. He is neurologically intact. His p otassium is a little low and we will supplement that. PLAN: 1. DVT prophylaxis includes thigh-high TEDs, SCDs, and aspirin twice a day. 2. PT, OT, weightbear as tolerated. Left total knee protocol. 3. Pain control, doing okay with current pain regimen. 4. Hypokalemia. We will supplement his potassium. 5. Disposition: Plan to discharge to home with some home health if he does okay in therapy. Job ID: [id number]
[2022-07-09] MEDS: CEROVITE ADV FORMULA TAB PO SCH (07:58)
[2022-07-09] MEDS: ASPIRIN 81 MG ECTAB PO SCH (07:59)
[2022-07-09] MEDS: DOCUSATE SODIUM 100 MG CAP PO SCH (07:59)
[2022-07-09] MEDS: Scopolamine CHECK PATCH PLACEMENT SCH (08:00)
[2022-07-09] MEDS: POTASSIUM CHLORIDE 10 MEQ TABCR PO SCH (08:00)
[2022-07-09] MEDS: TAPENTADOL HCL ER 50 MG TABCR PO SCH (08:03)
[2022-07-09] MEDS ORDERED: NON-FORMULARY MEDICATION (Multivitamin Tablet) PO SCH (09:00)
[2022-07-09] MEDS ORDERED: ENALAPRIL MALEATE 10 MG TAB PO SCH (09:00)
[2022-07-09] MEDS ORDERED: METOPROLOL SUCC 50MG EXT REL TAB PO SCH (09:00)
[2022-07-09] MEDS ORDERED: ASCORBIC ACID 500 MG TAB PO SCH (09:00)
[2022-07-09] MEDS ORDERED: MULTIVITAMIN TAB PO SCH (09:00)
[2022-07-09] MEDS ORDERED: TAMSULOSIN HCL 0.4 MG CAP PO SCH (09:00)
[2022-07-09] MEDS ORDERED: glipiZIDE 5 MG TAB PO SCH (09:00)
[2022-07-09] MEDS: INSULIN ASPART PER UNIT SC SCH ×2 (09:22→11:22)
--- NOTE | 2022-07-09 11:36 | Pharmacy Report ---
Glycemic Ortho Sign Off Note - Date of Service July 09, 2022 - Scope Glycemic Pharmacist consulted for glycemic control and to write orders per [facility] inpatient glycemic control protocol. - Objective Accuchecks BSG (last 24hrs):: 07/08/22 07/08/22 07/08/22 15:51 16:44 20:55 Glucose POC Glucose 133 H 126 H 133 H 07/09/22 07/09/22 05:50 08:03 Glucose 123 H POC Glucose 125 H - Assessment * Pt is maintained on oral antidiabeticagent[s]as anoutpatient with excellent control per recent A1c * Oral agents are not recommended for inpatient use d/t drug interactions, changing PO intake, and difficulty titrating for acute hyper/hypoglycemia. * Recommended regimen for inpatient use is SQ insulin * Low stress weight based insulin dosing appropriate since patient has minimal risk factors for insulin resistance (i.e. no steroids). * Appropriate to DC insulin and resume outpatient antidiabetic regimen at discharge * Goal is to maintain BSGs <200 mg/dl (ideally <150 mg/dl) to prevent post op complications - Plan For Inpatient Glycemic Control * Basal insulin * Not needed based on A1c, pre-op BSGs, and minimal risk factors for insulin resistance * Bolus insulin * Utilize low stress weight based NovoLog parameters per scale ACHS * Pharmacy has entered glycemic orders and is signing off of the glycemic consult. We will no longer be making adjustments to inpatient regimen. Please feel free to re-consult if needed. Thank you.
--- NOTE | 2022-07-11 12:22 | Discharge Summary ---
Date of Service July 11, 2022 Discharge Data Procedures Performed Operation Date: 07/08/22 12:30 Actual Procedures p Left Total Knee Arthroplasty(Left) - Daniel Jensen MD Hospital Course (1) Status post total left knee replacement: This is a 66 year old patient admitted on 07/08/22 and underwent total knee arthroplasty. He tolerated the procedure well and there were no complications. T ransferred to the PACU post op and later to the orthopedic floor for further care. He was given ancef for antibiotic prophylaxis. He was also given JON stockings, SCDs, and aspirin for DVT prophylaxis. Hemoglobin, hematocrit, and vital signs were monitored during his hospital stay and remained stable. Did not require any blood transfusions. There were no complications during his hospital stay. By post op day #1 the patient was tolerating a regular diet, pain was reasonably controlled with oral pain medicine, and he was participating in physical therapy. On post op day #1 the patient was discharged home and set up with home health care. He was given printed discharge instructions including prescriptions for extra strength tylenol, aspirin, toradol, zofran, senokot, flomax, and oxycodone. Continue physical therapy, weight bearing as tolerated. Continue JON stockings. Follow up approximately 2 weeks post op or sooner if there are problems or concerns. Coding Level of Care Code None Diagnoses Status post total left knee replacement Z96.652
== END 2022-07-09 13:30 | disposition home health service (06) ==
LOC: 3E 09:49 → ASU 09:49